=== PATIENT | female | born 1940 | race Caucasian/White ===

== ENCOUNTER 2020-05-03 10:12 | Outpatient (REF) | payer MEDICARE, BC, SELFPAY ==
[2020-05-03 13:44] LABS: Abs Immature Grans 0.01 10^3/uL (0.0-0.06); Absolute Basophil Count 0.05 10^3/uL (0.0-0.2); Absolute Lymphocyte Count 1.66 10^3/uL (1.2-3.4); Absolute Monocyte Count 0.51 10^3/uL (0.1-0.8); Absolute Neutrophil Count 2.97 10^3/uL (1.2-6.7); Basophils % 0.9; Eosinophils % 3.7; HCT 36.9 % (36.0-46.0); HGB 12.5 g/dL (11.2-15.7); Immature Grans % 0.2; Lymphocytes % 30.7; MCH 32.8 pg (27.0-33.0); MCHC 33.9 % (32.0-36.0); MCV 96.9 fL (80-95); MPV 10.8 fL (8.0-11.0); Monocytes % 9.4; Neutrophils % 55.1; Nucleated RBC 0 %; Platelet Count 232 10^3/uL (130-400); RBC 3.81 10^6/uL (3.93-5.22); RDW 11.6 % (11.7-14.6)
[2020-05-03 14:07] LABS: ALT 27 U/L (14-59); AST 20 U/L (15-37); Albumin 3.8 g/dL (3.4-5.0); Alkaline Phosphatase 62 U/L (46-116); Anion Gap 6.5 mmol/L (3-11); BUN 12 mg/dL (7-18); Bilirubin, Total 0.9 mg/dL (0.2-1.0); CO2 26.5 mmol/L (21.0-32.0); CREATININE 0.8 mg/dL (0.55-1.02); Calcium 9.2 mg/dL (8.5-10.1); Calculated LDL 80 mg/dL (<100); Chloride 105 mmol/L (98-107); Cholesterol 157 mg/dL (<200); Glucose 97 mg/dL (74-106); HDL Cholesterol 65 mg/dL (40-60); Potassium 4.3 mmol/L (3.5-5.1); Sodium 138 mmol/L (136-145); TSH (W/Ref FT4) 2.47 uIU/mL (0.36-3.74); Total Protein 6.5 g/dL (6.4-8.2); Triglyceride 61 mg/dL (<150)
== END 2020-05-03 10:13 | disposition home or self-care (01) ==
LOC: NCHCN 10:12
PROVIDERS: PCP Family Medicine; Visit Provider Family Medicine
DX: I10 Essential (primary) hypertension (principal); E78.5 Hyperlipidemia, unspecified
CPT/HCPCS: 80053; 80061; 84443; 85025

== ENCOUNTER 2021-01-02 09:11 | Outpatient (REF) | payer MEDICARE, BC, SELFPAY ==
[2021-01-02 14:15] LABS: HCT 37.9 % (36.0-46.0); HGB 12.7 g/dL (11.2-15.7); MCH 32.6 pg (27.0-33.0); MCHC 33.5 % (32.0-36.0); MCV 97.2 fL (80-95); MPV 10.5 fL (8.0-11.0); Platelet Count 222 10^3/uL (130-400); RDW 11.7 % (11.7-14.6); RDW-SD 41.1 fL; WBC 4.99 10^3/uL (4.4-10.8)
[2021-01-02 15:31] LABS: ALT 26 U/L (14-59); AST 19 U/L (15-37); Albumin 3.8 g/dL (3.4-5.0); Alkaline Phosphatase 57 U/L (46-116); Anion Gap 7.9 mmol/L (3-11); BUN 15 mg/dL (7-18); CO2 28.1 mmol/L (21.0-32.0); Calcium 9.2 mg/dL (8.5-10.1); Calculated LDL 97 mg/dL (<100); Chloride 104 mmol/L (98-107); Cholesterol 183 mg/dL (<200); Estimated GFR 53.35 (mL/min/1.73m2); Glucose 92 mg/dL (74-106); HDL Cholesterol 76 mg/dL (40-60); Potassium 4.5 mmol/L (3.5-5.1); Sodium 140 mmol/L (136-145); Total Protein 6.5 g/dL (6.4-8.2); Triglyceride 54 mg/dL (<150)
[2021-01-02 17:12] LABS: Vitamin D 25 Total 55.4 ng/mL (30-100)
== END 2021-01-02 09:12 | disposition home or self-care (01) ==
LOC: NCHCN 09:11
PROVIDERS: PCP Family Medicine; Visit Provider Family Medicine
DX: I10 Essential (primary) hypertension (principal); E55.9 Vitamin D deficiency, unspecified; E78.5 Hyperlipidemia, unspecified; I47.1 Supraventricular tachycardia
CPT/HCPCS: 80053; 80061; 82306; 85027

== ENCOUNTER → 2021-11-23 04:22 | Outpatient (CLI) | payer MEDICARE, SELFPAY ==
--- NOTE | 2021-11-23 | DI.DEXA_ITS ---
Exam(s) XR DEXA BONE DENSITY W/WO TAYLOR EXAM: XR DEXA BONE DENSITY W/WO TAYLOR CLINICAL HISTORY: MENOPAUSE Z78.0 PREVENTIVE HEALTH CARE Z00.00 TECHNIQUE: Routine DEXA evaluation of the lumbar spine, hip, or forearm. COMPARISON: No exams were available for comparison FINDINGS: Performed on a Hologic unit. Lateral image: No compression fracture evident. Lumbar Spine total T-score: -1.7 Hip total T-score:-1.7 Independent reading at the level of the femoral neck yields at T-score of -1.6. Forearm total T-score: -2.8 IMPRESSION: Bone mineral density measures in the osteopenia-bordering on osteoporosis range. Fracture risk is mod erate-high Note: Any spine fracture indicates 5x risk for subsequent spine fracture and 2x risk for subsequent h ip fracture. World Health Organization criteria for BMD interpretation classify patients: Normal...... T- Score at or above -1.0 Osteopenic... T- Score between -1.0 and -2.5 Osteoporosis... T-Score at or below -2.5
== END ==
PROVIDERS: PCP Family Medicine; Visit Provider Family Medicine
DX: M85.88 Other specified disorders of bone density and structure, other site (principal); Z78.0 Asymptomatic menopausal state
CPT/HCPCS: 77080

== ENCOUNTER 2022-04-15 10:27 | Observation (INO) | payer MEDICARE, SELFPAY ==
[2022-04-15] VITALS (10 sets, daily range): BP systolic 128–192; BP diastolic 65–91; PULSE 50–67; RESP 16–22; TEMP 36.4–36.9; O2SAT 97–100
--- NOTE | 2022-04-15 10:28 | RT.EKG_ITS ---
APPROVED REPORT Exam: Resting ECG Reason for Exam: chest pain Patient Location: E HR:60 bpm ECG Measurements Heart Rate [address] 144 P 73 QRSd 100 QRS 19 QT 418 T 32 QTc 419 Conclusion Sinus rhythm...normal P axis, V-rate 60- 99
[2022-04-15 10:55] LABS: Abs Immature Grans 0.01 10^3/uL (0.0-0.06); Absolute Basophil Count 0.04 10^3/uL (0.0-0.2); Absolute Eosinophil Count 0.05 10^3/uL (0.0-0.7); Absolute Lymphocyte Count 1.64 10^3/uL (1.2-3.4); Absolute Monocyte Count 0.48 10^3/uL (0.1-0.8); Absolute Neutrophil Count 3.63 10^3/uL (1.2-6.7); Basophils % 0.7; Eosinophils % 0.9; HCT 35.8 % (36.0-46.0); HGB 12.8 g/dL (11.2-15.7); Immature Grans % 0.2; MCH 33.6 pg (27.0-33.0); MCHC 35.8 % (32.0-36.0); MCV 94 fL (80-95); MPV 9.9 fL (8.0-11.0); Monocytes % 8.2; Platelet Count 218 10^3/uL (130-400); RBC 3.81 10^6/uL (3.93-5.22); RDW 11.5 % (11.7-14.6); RDW-SD 38.8 fL; WBC 5.85 10^3/uL (4.4-10.8)
[2022-04-15 11:11] LABS: ALT 26 U/L (14-59); AST 24 U/L (15-37); Alkaline Phosphatase 56 U/L (46-116); Anion Gap 6.3 mmol/L (3-11); BUN 8 mg/dL (7-18); Bilirubin, Total 1.4 mg/dL (0.2-1.0); CO2 28.7 mmol/L (21.0-32.0); CREATININE 0.9 mg/dL (0.55-1.02); Calcium 9.3 mg/dL (8.5-10.1); Chloride 101 mmol/L (98-107); Estimated GFR 64.23 (mL/min/1.73m2); Glucose 129 mg/dL (74-106); Magnesium 1.9 mg/dL (1.8-2.4); Potassium 4.2 mmol/L (3.5-5.1); Sodium 136 mmol/L (136-145); Total Protein 6.9 g/dL (6.4-8.2); Troponin I < 50 ng/L (<or=60)
--- NOTE | 2022-04-15 11:11 | DI.CT_ITS ---
Exam(s) CT THORAX ABD/PEL CTA EXAM: CT THORAX ABD/PEL CTA CLINICAL HISTORY: chest pain, central, sharp, hypertensive. TECHNIQUE: Imaging Protocol: Axial computed tomography images with coronal and sagittal reformatted images were created and reviewed CONTRAST MATERIAL: Intravenous: Omnipaque 350 Contrast volume:100 ml Oral: None COMPARISON: No exams were available for comparison FINDINGS: CHEST: AORTA: The diameter of the ascending thoracic aorta is upper normal. Aortic arch and descending thor acic aorta exhibit some calcified plaque but upper normal diameter and there is no evidence of dissec tion. In the abdomen there is no evidence of aortic aneurysm, dissection, nor significant enlargement of th e iliac arteries nor of the common femoral arteries. There is also only mild atherosclerotic involve ment of the aorta, given this patient's age. No significant stenosis in the aorta and aortoiliac seg ments. Also no evidence of significant stenosis at the origin of the great vessels off the aortic ar ch. PULMONARY ARTERIES: No obvious acute pulmonary emboli. LUNGS: No infiltrates nor pleural effusions. No ominous pulmonary nodules.. MEDIASTINUM: There is no hilar nor mediastinal adenopathy. Visualized thyroid unremarkable. CARDIAC: Heart size is normal. There is no pericardial effusion. AORTA: Caliber of the thoracic aorta is within normal limits.There is no evidence of aortic dissectio n. ABDOMEN: There is no ascites. LIVER: There are no focal hepatic lesions evident on this arterial phase study nor dilatation of intr ahepatic ducts. GALLBLADDER/BILIARY: No obvious gallbladder pathology. CBD is not dilated. PANCREAS: No evidence of pancreatic mass nor dilatation of the pancreatic duct. SPLEEN: Spleen is not enlarged. There are no intrasplenic lesions. Splenic and portal veins are couch nt. ADRENALS: There are no significant adrenal masses. KIDNEYS: Bilateral extrarenal pelves, not associated with caliectasis. No radiopaque calculi seen in the ureters. Ureter is below the UPJ levels are not dilated. No radiopaque calculi nor hydronephro sis. No solid renal masses.. ABDOMINAL AORTA: The abdominal aorta is not enlarged. LYMPH NODES: There is no retroperitoneal nor para-aortic adenopathy. No obvious mesenteric masses. ABDOMINAL WALL: No evidence of significant anterior abdominal wall hernia. GI: There is no evidence of bowel obstruction, free air, nor abscess. PELVIS: LYMPH NODES: There is no intrapelvic nor inguinal adenopathy. GI: No evidence of appendicitis.No evidence of sigmoid diverticulitis. URINARY BLADDER: No calculi nor masses evident REPRODUCTIVE: Uterus and adnexal regions echo. No free fluid. OSSEOUS: No significant osseous lesions. No fractures. Grade 1 did degenerative anterolisthesis L4 upon L5. No disc space narrowing at this level. Mild disc space narrowing noted at L5-S1 level. IMPRESSION: 1. No significant findings in the thoracic and abdominal aorta nor in the aortoiliac segments. No an eurysmal dilatation. No significant stenosis. No dissection. No pericardial effusion. 2. No significant acute findings in the chest, abdomen, and pelvis. 3. Incidentally noted is degenerative anterolisthesis of L4 upon L5 due to facet arthropathy. RADIATION DOSE DELIVERED: 662.58mGy.cm Total DLP DATA REPOSITORY: All CT scans at this facility are submitted to the National Radiology Data Registry (NRDR) Dose Index Registry (DIR) with the [employer] (ACR). RADIATION OPTIMIZATION: All CT scans at this facility use at least one of these dose optimization te chniques: automated exposure control; mA and/or kV adjustment per patient size (includes targeted exa ms where dose is matched to clinical indication); or iterative reconstruction.
[2022-04-15] MEDS: LORazepam 2 MG/ML VIAL 0.5 MG IVP (11:31)
[2022-04-15] MEDS: Omnipaque 350 MG/ML 100 ML BTL IJ (11:37)
[2022-04-15] MEDS: Normal Saline - Diluent 50 ML VIAL IV (11:48)
--- NOTE | 2022-04-15 12:13 | DI.VRAD_ITS ---
PROCEDURE INFORMATION: Exam: CTA Chest With Contrast CTA Abdomen and Pelvis With Contrast Exam date and time: 04/15/2022 11:39 AM Age: 81 years old Clinical indication: Other: Chest pain, central, sharp, hypertensive; Prior surgery; Surgery date: 6+ months; Surgery type: Appendectomy TECHNIQUE: Imaging protocol: Computed tomographic angiography of the chest with contrast. Computed tomographic angiography of the abdomen and pelvis with contrast. 3D rendering (Not supervised by radiologist): MIP and/or 3D reconstructed images were created by the technologist. Radiation optimization: All CT scans at this facility use at least one of these dose optimization techniques: automated exposure control; mA and/or kV adjustment per patient size (includes targeted exams where dose is matched to clinical indication); or iterative reconstruction. Contrast material: OMNIPAQUE 350; Contrast volume: 90 ml; Contrast route: INTRAVENOUS (IV); COMPARISON: No relevant prior studies available. FINDINGS: VASCULATURE: Pulmonary arteries: Normal. No pulmonary emboli. Aorta: No aortic aneurysm. No aortic dissection. Moderate atherosclerosis. Celiac trunk and mesenteric arteries: No occlusion or significant stenosis. Renal arteries: No occlusion or significant stenosis. Right iliac arteries: No occlusion or significant stenosis. Left iliac arteries: No occlusion or significant stenosis. CHEST: Lungs: Unremarkable. No consolidation. No masses. Pleural spaces: Unremarkable. No pneumothorax. No pleural effusion. Heart: Unremarkable. No cardiomegaly. No pericardial effusion. ABDOMEN AND PELVIS: Liver: No mass. Gallbladder and bile ducts: Unremarkable. No calcified stones. No ductal dilation. Pancreas: Unremarkable. No mass. No ductal dilation. Spleen: Unremarkable. No splenomegaly. Adrenal glands: Unremarkable. No mass. Kidneys and ureters: Kidneys exhibit mildly prominent extrarenal pelvis bilaterally. No calculus or obstruction. Stomach and bowel: Unremarkable. No obstruction. No mucosal thickening. Appendix: History of previous appendectomy. Intraperitoneal space: Unremarkable. No free air. No significant fluid collection. Urinary bladder: Unremarkable. No mass. Reproductive: Unremarkable as visualized. Lymph nodes: Unremarkable. No enlarged lymph nodes. Bones/joints: Unremarkable. No acute fracture. Soft tissues: Unremarkable. IMPRESSION: Unremarkable CTA chest, abdomen, and pelvis. Dictated and Authenticated by: Gerard Roy MD. Ordering:MIGDALIA Brock MD
--- NOTE | 2022-04-15 12:26 | NUR.NOTE ---
Nursing Note: Signed request form faxed to and confirmation obtained. Requested Admit discharge summary and/or ED note; EKG; CT scan results; any cardiac testing results. [place], [place] P [phone] F [phone]
--- NOTE | 2022-04-15 12:28 | W.ED.GENAD ---
Discharge Plan Disposition Patient Disposition: Admit to [facility] Condition: Stable Discharge Details Chief Complaint: Chest Pain Clinical Impression: Chest pain Primary Care Provider: Yoon Hernandez ED Provider: Vinod Adrian Home Meds and New Rx's Prescriptions: No Action nitroglycerin [Nitrostat] 0.3 mg tablet, sublingual 0.3 mg sublingual Q5M PRN Rx Instructions: do not exceed 3 doses per episode ramipril 10 mg capsule 10 mg PO BID alprazolam 0.5 mg tablet 0.5 mg PO BID aspirin 81 mg tablet,chewable 81 mg PO DAILY Centrum Silver 0.4-300-250 mg-mcg-mcg tablet 1 tab PO DAILY simvastatin 10 mg tablet 10 mg PO DAILY fluticasone propionate [Flonase Allergy Relief] 50 mcg/actuation spray,suspension 1 spray intranasal DAILY PRN Rx Instructions: administer into each nostril Caltrate 600 plus D 600 mg (1,500 mg)-800 unit tablet,chewable 1 tab PO DAILY psyllium husk [Metamucil] 0.52 gram capsule 0.52 g PO .Q OTHER DAY PRN atenolol 25 mg tablet 25 mg PO BID Medical Decision Making 1230 --81-year-old female with multiple medical problems including history of hyperlipidemia, hypertension, SVT, here with intermittent chest pressure over the past few weeks and sharp retrosternal chest discomfort today that improved with sublingual nitroglycerin. Patient is hypertensive. She does have history of anxiety and does appear anxious today. Concern for potential acute life-threatening aortic dissection. Plan to obtain CTA of the thorax and continue to observe abdomen pelvis for runoff. I considered intermittent arrhythmia. Patient currently in normal sinus rhythm on cardiac cath lab radiology technologist and EKG. Consider ACS. Initial EKG was reviewed and interpreted by me: Nondiagnostic, please see report. Initial troponin negative. Plan for delta troponin and continue trending. I do suspect anxiety is contributing to her symptoms. I will give Ativan 0.5 mg IV.\ -- Labs reviewed initial troponin negative. Delta troponin negative. CTA of the chest was interpreted by radiology: Unremarkable CTA chest abdomen and pelvis. Plan for hospitalization for continued cardiac monitoring and observation with trending of troponin. I called and spoke with the hospitalist on-call, Dr. Ruggireo, discussed ED presentation and course, he will admit the patient. Care transition at time of admission. Lab Data Lab results reviewed: Yes I reviewed the patient's lab results. Labs: Laboratory Tests Range/Units 04/15/22 04/15/22 04/15/22 10:38 10:38 12:52 WBC (4.4-10.8) 10^3/uL 5.85 RBC (3.93-5.22) 10^6/uL 3.81 L Hgb (11.2-15.7) g/dL 12.8 Hct (36.0-46.0) % 35.8 L MCV (80-95) fL 94 MCH (27.0-33.0) pg 33.6 H MCHC (32.0-36.0) % 35.8 RDW (11.7-14.6) % 11.5 L Plt Count (130-400) 10^3/uL 218 MPV (8.0-11.0) fL 9.9 Immature Gran % 0.2 Neutrophils % 62.0 Lymphocytes % 28.0 Monocytes % 8.2 Eosinophils % 0.9 Basophils % 0.7 Nucleated RBC % (0.0-0.3) % 0.0 Absolute Neutrophils (1.2-6.7) 10^3/uL 3.63 Absolute Lymphocytes (1.2-3.4) 10^3/uL 1.64 Absolute Monocytes (0.1-0.8) 10^3/uL 0.48 Absolute Eosinophils (0.0-0.7) 10^3/uL 0.05 Absolute Basophils (0.0-0.2) 10^3/uL 0.04 Sodium (136-145) mmol/L 136 Potassium (3.5-5.1) mmol/L 4.2 Chloride (98-107) mmol/L 101 Carbon Dioxide (21.0-32.0) mmol/L 28.7 Anion Gap (3-11) mmol/L 6.3 BUN (7-18) mg/dL 8 Creatinine (0.55-1.02) mg/dL 0.9 Est GFR (CKD-EPI 2020) (mL/min/1.73m2) 64.23 Glucose (74-106) mg/dL 129 H Calcium (8.5-10.1) mg/dL 9.3 Magnesium (1.8-2.4) mg/dL 1.9 Total Bilirubin (0.2-1.0) mg/dL 1.4 H AST (15-37) U/L 24 ALT (14-59) U/L 26 Alkaline Phosphatase (46-116) U/L 56 Troponin I (<or=60) ng/L < 50 < 50 Total Protein (6.4-8.2) g/dL 6.9 Albumin (3.4-5.0) g/dL 4.0 HPI General Mode of arrival: ambulatory. Date/Time Provider Initiated Documentation: 04/15/22 10:34. Limitations to Documentation: no limitations. Information obtained by: patient. HPI Narrative: 81-year-old female here with chief complaint of chest pain. Patient has intermittent chest pain for the past few weeks. Today she woke up early this morning feeling flushed and developed sharp retrosternal chest pain around 4:30 AM. Pain persisted and she took a nitroglycerin around 915 which resolved her pain. Pain was severe. She continues to have some mild chest pressure similar to the intermittent episodes she has had. She does have associated anxiety and notes history of anxiety disorder. She denies associated shortness of breath. No leg swelling or calf pain. No abdominal pain. Patient notes she had similar episode about 6 months ago and was seen at [facility] in [facility]. She had negative diagnostic work-up at that time. Related Data Home Medications Medication Instructions Recorded Confirmed alprazolam 0.5 mg tablet 0.5 mg PO BID 03/06/21 04/15/22 aspirin 81 mg chewable tablet 81 mg PO DAILY 03/06/21 04/15/22 atenolol 25 mg tablet 25 mg PO BID 03/06/21 04/15/22 calcium carbonate 600 mg-vitamin 1 tab PO DAILY 03/06/21 04/15/22 D3 20 mcg (800 unit) chewable tablet (Caltrate 600 plus D) fluticasone propionate 50 1 spray intranasal DAILY PRN 03/06/21 04/15/22 mcg/actuation nasal spray,suspension (Flonase Allergy Relief) [id number] acid 0.4 1 tab PO DAILY 03/06/21 04/15/22 mg-lycopene 300 mcg-lutein 250 mcg tablet (Centrum Silver) psyllium husk 0.52 gram capsule 0.52 g PO .Q OTHER DAY PRN 03/06/21 04/15/22 (Metamucil) ramipril 10 mg capsule 10 mg PO BID 03/06/21 04/15/22 simvastatin 10 mg tablet 10 mg PO DAILY 03/06/21 04/15/22 nitroglycerin 0.3 mg sublingual 0.3 mg sublingual Q5M PRN 10/10/21 04/15/22 tablet (Nitrostat) Allergies Allergy/AdvReac Type Severity Reaction Status Date / Time mold Allergy Verified 10/10/21 10:48 soy Allergy Verified 10/10/21 10:48 Sulfa (Sulfonamide Allergy Verified 10/10/21 10:48 Antibiotics) SSRI'S Allergy Uncoded 10/10/21 10:48 General Stated Complaint: Chest Pain ZOFIA: 2 Review of Systems All systems reviewed & are unremarkable except as noted in HPI and below Constitutional Constitutional: Denies fever(s) Cardiovascular Cardiovascular: Reports as per HPI Respiratory Respiratory: Reports as per HPI PFSH All Active Problems (Updated 04/15/22 @ 14:50 by Vinod Adrian MD) Chest pain (Acute) History of excessive cerumen (Acute) Conductive hearing loss, external ear (Acute) Impacted cerumen, bilateral (Acute) Sensorineural hearing loss of both ears (Acute) Medical History Age-related osteoporosis without current pathological fracture Allergic dermatitis Anxiety Gastroesophageal reflux disease Generalized anxiety disorder Hemorrhoids Hyperlipidemia Hypertension IBS (irritable bowel syndrome) OCD (obsessive compulsive disorder) Preventative health care Supraventricular tachycardia Vitamin D deficiency Surgical History History of appendectomy History of excision of lesion Hx of fusion of cervical spine Family History Mother Colon cancer Social History Smoking/Tobacco Use Status: Former Tobacco Use tobacco type: cigarettes Quit Date: 03/25/1962 Smoking risk assessment performed?: Yes Alcohol Intake: current Alcohol Intake frequency: holidays/special occasions only Alcohol type: wine Drug use: Never Substance use type: does not use Do you feel safe at home: Yes Do you feel safe in your relationship?: Yes Exam Const General: cooperative HENMT Mouth: moist mucous membranes Eyes Conjunctivae: normal conjunctivae EOM: EOM intact bilaterally Neck Neck: trachea midline and supple Resp Auscultation: clear to auscultation bilaterally, no rales, no rhonchi and no wheezes Cardio Jugular venous pressure: no JVD Rate: regular rate and not tachycardic Rhythm: regular rhythm Heart Sounds: no murmurs GI Palpation: soft, not firm, no guarding, no masses, not rigid and nontender Skin General skin exam: no rashes or lesions noted Neuro General: patient alert, patient awake, patient oriented x3 and tone normal Extrem General: no edema Psych Appearance: grossly normal Mental Status: mental status grossly normal Speech and Movement: speech and movement normal Affect: anxious affect Course Vital Signs Vital signs: Vital Signs Temperature 36.5 C 04/15/22 10:30 Pulse 67 04/15/22 10:30 Respiratory Rate 20 04/15/22 10:30 Blood Pressure 179/65 H 04/15/22 10:30 Pulse Oximetry 98 04/15/22 10:30 Temperature 36.5 C 04/15/22 10:30 Temperature Source Temporal Artery Scan 04/15/22 10:30 Pulse 50 L 04/15/22 12:02 Respiratory Rate 18 04/15/22 12:02 Respiratory Effort Non-Labored 04/15/22 11:47 Respiratory Depth Normal 04/15/22 11:47 Respiratory Pattern Normal 04/15/22 11:47 Blood Pressure 165/84 H 04/15/22 12:02 Pulse Oximetry 99 04/15/22 12:02 Oxygen Delivery Method Room Air 04/15/22 12:02 Oxygen Flow Rate 0 04/15/22 12:02 Pain Level 0 04/15/22 11:47 Lab/Test Results Lab/Test Results: Laboratory Tests Range/Units 04/15/22 04/15/22 10:38 10:38 WBC (4.4-10.8) 10^3/uL 5.85 RBC (3.93-5.22) 10^6/uL 3.81 L Hgb (11.2-15.7) g/dL 12.8 Hct (36.0-46.0) % 35.8 L MCV (80-95) fL 94 MCH (27.0-33.0) pg 33.6 H MCHC (32.0-36.0) % 35.8 RDW (11.7-14.6) % 11.5 L Plt Count (130-400) 10^3/uL 218 MPV (8.0-11.0) fL 9.9 Immature Gran % 0.2 Neutrophils % 62.0 Lymphocytes % 28.0 Monocytes % 8.2 Eosinophils % 0.9 Basophils % 0.7 Nucleated RBC % (0.0-0.3) % 0.0 Absolute Neutrophils (1.2-6.7) 10^3/uL 3.63 Absolute Lymphocytes (1.2-3.4) 10^3/uL 1.64 Absolute Monocytes (0.1-0.8) 10^3/uL 0.48 Absolute Eosinophils (0.0-0.7) 10^3/uL 0.05 Absolute Basophils (0.0-0.2) 10^3/uL 0.04 Sodium (136-145) mmol/L 136 Potassium (3.5-5.1) mmol/L 4.2 Chloride (98-107) mmol/L 101 Carbon Dioxide (21.0-32.0) mmol/L 28.7 Anion Gap (3-11) mmol/L 6.3 BUN (7-18) mg/dL 8 Creatinine (0.55-1.02) mg/dL 0.9 Est GFR (CKD-EPI 2020) (mL/min/1.73m2) 64.23 Glucose (74-106) mg/dL 129 H Calcium (8.5-10.1) mg/dL 9.3 Magnesium (1.8-2.4) mg/dL 1.9 Total Bilirubin (0.2-1.0) mg/dL 1.4 H AST (15-37) U/L 24 ALT (14-59) U/L 26 Alkaline Phosphatase (46-116) U/L 56 Troponin I (<or=60) ng/L < 50 Total Protein (6.4-8.2) g/dL 6.9 Albumin (3.4-5.0) g/dL 4.0
[2022-04-15 13:24] LABS: Troponin I < 50 ng/L (<or=60)
[2022-04-15 14:58] LABS: Source Nasal/Nares
--- NOTE | 2022-04-15 15:00 | W.PM.HP.N ---
Date of service: 04/15/22 Time of Service: 15:01 Assessment and Plan Assessment and plan (1) Chest pain: Status: Acute Assessment and plan: R/O ACS; trend troponin. Possibly GI in nature. H/O GERD but not on acid suppressant. If pain recurs will initiate famotadine or PPI. On aspirin, BB, statin. (2) Generalized anxiety disorder: Assessment and plan: Given 0.5mg po ativan in the ED. Cont home alprazolam 0.5 BID. Also with dx of OCD. (3) Hyperlipidemia: Assessment and plan: Cont simvastatin. (4) Hypertension: Assessment and plan: Elevated in the ED. Recently prescribed amlodipine but she has been hesitant to start taking it because she was alone at home and some of the potential side effects worried her. She is willing to initiate amlodipine while in the hospital; 2.5mg QHS. She is taking atenolol and ramipril. HR in the 50's and occasionally 40's per her daily records. Does not have symptoms of orthostasis, dizziness, fatigue. (5) Supraventricular tachycardia: Assessment and plan: Previous history of SVT. Not seen on monitoring in ED. Telemetry. (6) Elevated bilirubin: Status: Acute Assessment and plan: Previous bilirubin levels in [facility] chart were normal; none were drawn recently. Monitor. History of Present Illness History of Present Illness Chief Complaint: Chest pain Narrative: This is an 81 yo female with a PMH of HTN, HLDS, SVT, IBS, GERD, OCD, anxiety. She presented to the ED with c/o several weeks of intermittent chest pressure, then at appx 4:30 AM on day of admission, she woke with a sharp retrosternal chest pain along with feeling flushed. She took a nitroglycerin at appx 9:15 and the sharp pain resolved. She described the pain as severe. No palpitations, shortness of breath, fever/chills, N/V/abd pain. Of note, she endorsed a similar episode 6 months ago and was seen at [facility] in [place], [place]. The w/u was negative. In the ED her troponin was negative x 2. No concerning EKG findings. CT chest/abd/pelvis was negative for concerning findings. WBC and Hgb normal. Lytes normal. Total bilirubin was mildly elevated at 1.4. LFTs normal. Initial BP 179/65. RA saturation 98%. Pulse 67. Review of Systems All systems reviewed & are unremarkable except as noted in HPI and below PFSH All Active Problems (Updated 04/15/22 @ 15:16 by Abisai Ruggiero MD) Elevated bilirubin (Acute) Chest pain (Acute) History of excessive cerumen (Acute) Conductive hearing loss, external ear (Acute) Impacted cerumen, bilateral (Acute) Sensorineural hearing loss of both ears (Acute) Medical History Age-related osteoporosis without current pathological fracture Allergic dermatitis Anxiety Gastroesophageal reflux disease Generalized anxiety disorder Hemorrhoids Hyperlipidemia Hypertension IBS (irritable bowel syndrome) OCD (obsessive compulsive disorder) Preventative health care Supraventricular tachycardia Vitamin D deficiency Surgical History History of appendectomy History of excision of lesion Hx of fusion of cervical spine Family History Mother Colon cancer Social History Smoking/Tobacco Use Status: Former Tobacco Use tobacco type: cigarettes Quit Date: 03/25/1962 Smoking risk assessment performed?: Yes Alcohol Intake: current Alcohol Intake frequency: holidays/special occasions only Alcohol type: wine Drug use: Never Substance use type: does not use Do you feel safe at home: Yes Do you feel safe in your relationship?: Yes Meds Allergies and Home Medications Allergies Allergy/AdvReac Type Severity Reaction Status Date / Time mold Allergy Verified 10/10/21 10:48 soy Allergy Verified 10/10/21 10:48 Sulfa (Sulfonamide Allergy Verified 10/10/21 10:48 Antibiotics) SSRI'S Allergy Uncoded 10/10/21 10:48 Home Medications Medication Instructions Recorded Confirmed Type alprazolam 0.5 mg tablet 0.5 mg PO BID 03/06/21 04/15/22 History aspirin 81 mg chewable tablet 81 mg PO DAILY 03/06/21 04/15/22 History atenolol 25 mg tablet 25 mg PO BID 03/06/21 04/15/22 History calcium carbonate 600 mg-vitamin 1 tab PO DAILY 03/06/21 04/15/22 History D3 20 mcg (800 unit) chewable tablet (Caltrate 600 plus D) fluticasone propionate 50 1 spray intranasal DAILY PRN 03/06/21 04/15/22 History mcg/actuation nasal spray,suspension (Flonase Allergy Relief) vasttdbv-pvw-vreqv acid 0.4 1 tab PO DAILY 03/06/21 04/15/22 History mg-lycopene 300 mcg-lutein 250 mcg tablet (Centrum Silver) psyllium husk 0.52 gram capsule 0.52 g PO .Q OTHER DAY PRN 03/06/21 04/15/22 History (Metamucil) ramipril 10 mg capsule 10 mg PO BID 03/06/21 04/15/22 History simvastatin 10 mg tablet 10 mg PO DAILY 03/06/21 04/15/22 History nitroglycerin 0.3 mg sublingual 0.3 mg sublingual Q5M PRN 10/10/21 04/15/22 History tablet (Nitrostat) amlodipine 2.5 mg tablet 2.5 mg PO DAILY 04/15/22 04/15/22 History Exam Narrative Exam Narrative: Standing in her room, looking for a place to plug in her phone and hearing aid chargers. Pleasant. Const General: cooperative and no acute distress Nutritional Appearance: thin Orientation: alert and oriented x3 Neck Neck: normal visual inspection and full ROM Resp Effort & Inspection: normal respiratory effort Auscultation: clear to auscultation bilaterally Cardio Rate: regular rate Rhythm: regular rhythm Heart Sounds: S1 normal and S2 normal GI Inspection: non-distended Palpation: nontender Skin General skin exam: no rashes or lesions noted Neuro General: no focal motor deficits Cranial Nerves: facial strength normal Speech: speech normal Gait: normal gait Extrem General: no pedal edema and no calf tenderness Psych Appearance: grossly normal Speech and Movement: speech and movement normal Affect: anxious affect Results Labs Result diagrams: 04/15/22 10:38 04/15/22 10:38 Labs: Laboratory Results - last 24 hr 04/15/22 04/15/22 04/15/22 10:38 10:38 12:52 WBC 5.85 RBC 3.81 L Hgb 12.8 Hct 35.8 L MCV 94 MCH 33.6 H MCHC 35.8 RDW 11.5 L Plt Count 218 MPV 9.9 Immature Gran % 0.2 Neutrophils % 62.0 Lymphocytes % 28.0 Monocytes % 8.2 Eosinophils % 0.9 Basophils % 0.7 Nucleated RBC % 0.0 Absolute Neutrophils 3.63 Absolute Lymphocytes 1.64 Absolute Monocytes 0.48 Absolute Eosinophils 0.05 Absolute Basophils 0.04 Sodium 136 Potassium 4.2 Chloride 101 Carbon Dioxide 28.7 Anion Gap 6.3 BUN 8 Creatinine 0.9 Est GFR (CKD-EPI 2020) 64.23 Glucose 129 H Calcium 9.3 Magnesium 1.9 Total Bilirubin 1.4 H AST 24 ALT 26 Alkaline Phosphatase 56 Troponin I < 50 < 50 Total Protein 6.9 Albumin 4.0 COVID-19 Source 04/15/22 14:45 WBC RBC Hgb Hct MCV MCH MCHC RDW Plt Count MPV Immature Gran % Neutrophils % Lymphocytes % Monocytes % Eosinophils % Basophils % Nucleated RBC % Absolute Neutrophils Absolute Lymphocytes Absolute Monocytes Absolute Eosinophils Absolute Basophils Sodium Potassium Chloride Carbon Dioxide Anion Gap BUN Creatinine Est GFR (CKD-EPI 2020) Glucose Calcium Magnesium Total Bilirubin AST ALT Alkaline Phosphatase Troponin I Total Protein Albumin COVID-19 Source Nasal/Nares Last Vital Signs Temp 36.5 C 04/15/22 10:30 Pulse 58 L 04/15/22 14:58 Resp 20 04/15/22 14:58 BP 154/71 H 04/15/22 14:58 Pulse Ox 97 04/15/22 14:58 Time Spent Time spent with Patient: <40 minutes Time was spent: preparing to see the patient(eg.review tests), ordering medications,tests, procedures, referring, communicating with other health adult day care worker and indepentently interpreting results
[2022-04-15 15:28] LABS: COVID-19 PCR Negative (Negative)
[2022-04-15 17:24] LABS: Troponin I < 50 ng/L (<or=60)
[2022-04-15] MEDS: ALPRAZolam 0.5 MG TAB PO (20:39)
[2022-04-15] MEDS: Atenolol 50 MG TAB 25 MG PO (20:39)
[2022-04-15] MEDS: Simvastatin 20 MG TAB 10 MG PO (20:40)
[2022-04-15] MEDS: Ramipril 5 MG CAP 10 MG PO (22:44)
[2022-04-15] MEDS: amLODIPine 2.5 MG TAB PO (22:44)
[2022-04-16] VITALS (9 sets, daily range): BP systolic 139–210; BP diastolic 72–100; PULSE 51–72; RESP 16–19; TEMP 35.6–36.7; O2SAT 98–100
[2022-04-16 06:46] LABS: ALT 18 U/L (14-59); AST 20 U/L (15-37); Albumin 3.3 g/dL (3.4-5.0); Alkaline Phosphatase 44 U/L (46-116); Anion Gap 6.3 mmol/L (3-11); BUN 11 mg/dL (7-18); Bilirubin, Total 1.1 mg/dL (0.2-1.0); CO2 27.7 mmol/L (21.0-32.0); CREATININE 0.8 mg/dL (0.55-1.02); Calcium 9.1 mg/dL (8.5-10.1); Chloride 104 mmol/L (98-107); Estimated GFR 73.98 (mL/min/1.73m2); Glucose 91 mg/dL (74-106); Sodium 138 mmol/L (136-145); Total Protein 5.6 g/dL (6.4-8.2)
--- NOTE | 2022-04-16 07:25 | NUR.NOTE ---
Nursing Note: Accessed chart to determine orders for EKG and to determine whether or not one needs to be cancelled.
[2022-04-16] MEDS: Multivitamin w/Minerals TAB 1 TAB PO (08:14)
[2022-04-16] MEDS: Ramipril 5 MG CAP 10 MG PO ×2 (08:14→19:48)
[2022-04-16] MEDS: ALPRAZolam 0.5 MG TAB PO ×2 (08:14→19:48)
[2022-04-16] MEDS: Aspirin 81 MG CHEW PO (08:14)
[2022-04-16] MEDS: Atenolol 50 MG TAB 25 MG PO ×2 (08:29→19:48)
--- NOTE | 2022-04-16 09:29 | INITIAL_ITS ---
- If Service Date Differs Date of service: 04/16/22 Time of Service: 09:30 Care Management Initial Assess REASON FOR HOSPITALIZATION:: chest pain PAST MEDICAL HISTORY/PAST SURGICAL HISTORY:: All Active Problems (Updated 04/15/22 @ 15:16 by Abisai Ruggiero MD). Elevated bilirubin (Acute). Chest pain (Acute). History of excessive cerumen (Acute). Conductive hearing loss, external ear (Acute). Impacted cerumen, bilateral (Acute). Sensorineural hearing loss of both ears (Acute). Medical History . Age-related osteoporosis without current pathological fracture. Allergic dermatitis. Anxiety. Gastroesophageal reflux disease. Generalized anxiety disorder. Hemorrhoids. Hyperlipidemia. Hypertension. IBS (irritable bowel syndrome). OCD (obsessive compulsive disorder). Preventative health care. Supraventricular tachycardia. Vitamin D deficiency. Surgical History . History of appendectomy. History of excision of lesion. Hx of fusion of cervical spine PREVIOUS FUNCTIONAL STATUS/SOCIAL/FAMILY SUPPORTS:: Soledad lives alone in a single family home in [place]. She has 3 children, 7 grandchildren and 5 great grandchildren. She shared that her family is scattered all over the country but that she has one daughter and 3 grandchildren closeby. Soledad is independent at baseline and does not receive any community services. She is very active and enjoys walking, hiking and kayaking. [place] [address]. 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 CURRENT FUNCTIONAL STATUS:: Soledad was sitting up in a chair when CM met with her. She was open to conversation and pleasant in interaction. Soledad informed CM that she is feeling much better than when she arrived and anticipates being discharged home later today. She did ask CM about telehealth monitoring. CM reached out to [facility] to determine the requirements and eligibility. This service is provided by home health and patients must meet home health requirementas such as being house bound. Soledad does not meet that criteria.CM informed her of that fact but also reached out to her PCP office to communicate Soledad's desire to have closer monitoring at home. ADVANCE DIRECTIVES:: none on file Has patient been provided with info about the portal/API?: Yes Did the patient sign up for the portal?: No CODE STATUS:: DNR/DNI INSURANCE COVERAGE / FINANCIAL ISSUES:: [facility] Medicare Advantage CURRENT HOME/COMMUNITY SERVICES/EQUIPMENT:: none PRIMARY CARE PHYSICIAN:: Yoon Hernandez POTENTIAL DISCHARGE NEEDS:: follow up with Cardiology and PCP PATIENT/FAMILY EDUCATION NEEDS:: review of disharge instructions, medications, activity, limitations, follow up plan, Ask Me Three TRANSPORTATION:: via private vehicle with family PLAN:: Soledad will likely be dsicharged home with no new services. She will follow up with her community providers and plan of care and transport with family. CM will follow and assess for dsicharge needs.
--- NOTE | 2022-04-16 14:30 | DI.US_ITS ---
APPROVED REPORT EXAM: Comprehensive 2D, Doppler, and color-flow Echocardiogram Patient Location: In-Patient Room/Bed: 231 Ocular Care Aide: Hortencia Youssef RDCS (AE) Indications: Chest pain, HTN Other Information Study Quality: Adequate Conclusion Normal left ventricular wall thickness and chamber size. Estimated ejection fraction is 55 to 60%. Wall motion is normal Normal right ventricular size and systolic function Both atria are normal in size Trileaflet aortic valve with trace regurgitation Mild mitral annular calcification. Mild to moderate mitral regurgitation Normal tricuspid valve with trace to mild regurgitation. Estimated right ventricular systolic pressu re is 33 mmHg Borderline dilated ascending aorta Wall motion Left Ventricle The left ventricle is normal size. The left ventricular systolic function is normal. The left ventric ular ejection fraction is within the normal range. There is normal left ventricular wall thickness. T here is normal LV segmental wall motion. There is no ventricular septal defect visualized. LVEF is 58 %. Right Ventricle Right ventricle is grossly normal in size. The right ventricular systolic function is normal. The RVS P is 33.4 mmHg. Atria The left atrium size is normal. The right atrium size is normal. The interatrial septum is intact wit h no evidence for an atrial septal defect. Aortic Valve The aortic valve is normal in structure. Aortic valve is trileaflet. There is no aortic valvular sten osis. Trace aortic regurgitation. Mitral Valve There is mitral annular calcification. No evidence of mitral valve stenosis. Mild to moderate mitral regurgitation. Tricuspid Valve The tricuspid valve is normal in structure. There is no tricuspid valve stenosis. Trace to mild tric uspid regurgitation. Pulmonic Valve The pulmonary valve is normal in structure. There is no pulmonic valvular stenosis. Trace pulmonic re gurgitation. Great Vessels The aortic root is normal in size. The ascending aorta is mildly dilated. Aortic arch is normal in ca liber. IVC is normal in size and collapses >50% with inspiration. Pericardium There is no pericardial effusion. 2D Dimensions IVSD d PLAX 0.77 cm F: 0.6-1.0 LV Vol A2C d MOD 85.8 mL LVPW d PLAX 0.76 cm F: 0.6 - 1.0 LV Vol A4C d MOD 79.8 mL LVID d PLAX 4.60 cm F: 3.8 - 5.2 LA vol/ BSA A2C s A-L 34.6 mL/m2 LVDs 3.25 cm F: 2.2 - 3.5 LA vol/ BSA A4C s A-L 41.5 mL/m2 Ao Root d 3.02 cm F: 2.7 - 3.3 LA Vol/ BSA Biplane s A-L 39.2 mL/m2 RA Area A4C 13.12 cm2 LA Area A4C s MOD 20.78 cm2 RA Vol/ BSA A4C s A-L 22.8 mL/m2 LA Area A2C s MOD 19.65 cm2 Ao Asc Diam d 3.38 cm F: 2.3 - 3.1 LV EF A4C MOD 57.5 % LV EF Teichholz 55.2 % LV EF A2C MOD 58.6 % LVEF (Wong's) 56.62 % F: 54 - 74 LV EF Biplane MOD 56.6 % LV Volume 68.07 mL F: 46 - 106 SV 47.66 mL LV Volume Index 42.01 mL/m2 F: 29 - 61 SV Index 29.42 mL/m2 LV Vol Biplane MOD 84.2 mL FS 28.60 % M-Mode TAPSE 2.38 cm (M/F) >1.7 LV Diastology MV E' medial 0.078 (>0.07 m/s) E/A Ratio 1.3 LV E/e MED 11.60 (<14) MV E Vmax 0.91 (0.4-1.3 m/s) MV E' lateral 0.090 (>0.1 m/s) MV A Vmax 0.70 (0.4-1.3 m/s) LV E/e LAT 10.15 (<14) MV E/A Ratio 1.27 MV E/E' medial 11.64 MV E/E' lateral 10.16 Aortic Valve LVOT Area 3.07 cm2 AoV Area Vmax 2.65 cm2 LVOT Vmax 1.22 m/s AoV Area/ BSA (Vmax) 1.64 cm2/m2 LVOT Mean Kurt. 0.68 m/s MARKUS Mean Kurt. 2.15 cm2 LVOT Peak Grad 6.0 mmHg MARKUS Mean Kurt. Index 1.33 cm2/m2 LVOT Mean Grad 2.4 mmHg AR DT 3814 msec LVOT VTI 0.282 m AR PHT 1106 msec LVOT Diam s 1.95 cm AoV Vmax 1.41 m/s Velocity Ratio 0.87 AoV Mean Kurt. 0.98 m/s AoV Peak Grad 8.0 mmHg LVOT SV 86.57 mL AoV Mean Grad 4.3 mmHg AoV VTI 0.337 m AoV Area VTI 2.57 cm2 AoV Area/ BSA (VTI) 1.59 cm/m2 Mitral Valve MV DT 166 (160-240 msec) MV PHT 48 msec MV Area PHT 4.58 cm2 Pulmonary Valve PV Vmax 0.84 (0.5-1.5 m/s) RVOT Peak Gr. 2.39 mmHg PV Peak Grad 2.9 mmHg RVOT Mean Gr. 1.30 mmHg PV Mean Grad 1.7 mmHg RVOT VTI 0.204 m PV VTI 0.212 m RVOT Vmax 0.77 m/s Tricuspid Valve TR Peak Grad 30.3 mmHg TR Vmax 2.76 m/s RA Pressure 3.00 mmHg RVSP (TR) 33.4 mmHg
--- NOTE | 2022-04-16 15:05 | PHA.REVIEW2 ---
Pharmacy Admission Review - Admission Clinical Review (Last Reviewed 04/15/22 @ 15:15 by Abisai Ruggiero MD) Elevated bilirubin (Acute) Chest pain (Acute) mold Allergy (Verified 10/10/21 10:48) soy Allergy (Verified 10/10/21 10:48) Sulfa (Sulfonamide Antibiotics) Allergy (Verified 10/10/21 10:48) SSRI'S Allergy (Uncoded 10/10/21 10:48) Resuscitation Status DNR/DNI Weight 58 kg - Renal Dosing Renal Dosing: BUN 11 mg/dL (7-18) 04/16/22 05:40 Creatinine 0.8 mg/dL (0.55-1.02) 04/16/22 05:40 Medications needing adjustments: Reviewed (crcl ~ 39, meds ok) - Anticoagulation Anticoagulation: Hgb 12.8 g/dL (11.2-15.7) 04/15/22 10:38 Hct 35.8 % (36.0-46.0) L 04/15/22 10:38 Plt Count 218 10^3/uL (130-400) 04/15/22 10:38 Creatinine 0.8 mg/dL (0.55-1.02) 04/16/22 05:40 DVT Prophylaxis: N/A (SCDs) Therapeutic Anticoagulation: N/A - Opiate Usage Evaluate Pain Scale/Pains Meds: N/A - Relevant Labs Sodium 138 mmol/L (136-145) 04/16/22 05:40 Potassium 4.0 mmol/L (3.5-5.1) 04/16/22 05:40 Chloride 104 mmol/L (98-107) 04/16/22 05:40 Magnesium 1.9 mg/dL (1.8-2.4) 04/15/22 10:38 Electrolytes, C-Reactive P, ESR: Reviewed - DM Control DM Control: Glucose 91 mg/dL (74-106) 04/16/22 05:40 DM Control: N/A (no diabetes diagnosis in chart) - Cardiac Review Cardiac Review: Troponin I < 50 ng/L (<or=60) 04/15/22 17:00 BP, HR, EF%: Reviewed (chief complaint: chest pain..R/O ACS vs GI pain. pt reports SL nitro did relieve pain at home. On ramipril 10 mg BID, atenolol 25 mg BID + newly added amlodipine 2.5 mg daily) - Qtc Review QTc: Reviewed (QTc = 419 on 04/15/22) - IV to PO Switch IV Medications: N/A - Home Meds Home Med List reviewed: Reviewed Relevent Home Meds Not ordered & why?: home meds are ordered, amlodipine on home med list however pt reports not starting it due to fear of side effects, is agreeable to start here - Current meds Current Medication Order Review: Reviewed
--- NOTE | 2022-04-16 17:19 | W.PM.PROGNOT ---
Date of Service Date of service: 04/16/22 Time of Service: 17:19 Assessment and Plan Assessment and plan (1) Chest pain: Status: Acute Assessment and plan: Troponin neg x 3. Possibly GI in nature. H/O GERD but not on acid suppressant. If pain recurs will initiate famotadine or PPI. On aspirin, BB, statin. (2) Generalized anxiety disorder: Assessment and plan: Given 0.5mg po ativan in the ED. Cont home alprazolam 0.5 BID. Also with dx of OCD. She is working on [employer]. (3) Hyperlipidemia: Assessment and plan: Cont simvastatin. (4) Hypertension: Assessment and plan: Elevated in the ED. Recently prescribed amlodipine 2.5mg but she has been hesitant to start taking it because she was alone at home and some of the potential side effects worried her. She is willing to initiate amlodipine while in the hospital; 2.5mg QHS. She is taking atenolol and ramipril. HR in the 50's and occasionally 40's per her daily records. Does not have symptoms of orthostasis, dizziness, fatigue. Will discuss decreasing dose of Atenolol. (5) Supraventricular tachycardia: Assessment and plan: Previous history of SVT. Not seen on monitoring in ED. Telemetry. (6) Elevated bilirubin: Status: Acute Assessment and plan: Previous bilirubin levels in [facility] chart were normal; none were drawn recently. Monitor. Subjective Subjective Patient reports: tolerating a regular diet and afebrile; denies nausea, vomiting or shortness of breath Interval history since last seen: Some generalized mild chest pressure. No palpitatons. Not diaphoretic. No dizziness. Exam Narrative Exam Narrative: Sitting in chair writing in her mindfulness journal. Pleasant. Const General: cooperative and no acute distress Nutritional Appearance: thin Orientation: alert and oriented x3 Neck Neck: normal visual inspection and full ROM Resp Effort & Inspection: normal respiratory effort Auscultation: clear to auscultation bilaterally Cardio Rate: regular rate Rhythm: regular rhythm Heart Sounds: S1 normal and S2 normal GI Inspection: non-distended Palpation: nontender Skin General skin exam: no rashes or lesions noted Neuro General: no focal motor deficits Cranial Nerves: facial strength normal Speech: speech normal Gait: normal gait Extrem General: no pedal edema and no calf tenderness Psych Appearance: grossly normal Speech and Movement: speech and movement normal Affect: normal affect Objective Last Vital Signs Temp 36.5 C 04/16/22 15:35 Pulse 60 04/16/22 15:35 Resp 16 04/16/22 15:35 BP 159/72 H 04/16/22 15:35 Pulse Ox 99 04/16/22 15:35 Laboratory Results - last 24 hr 04/15/22 04/16/22 17:00 05:40 Sodium 138 Potassium 4.0 Chloride 104 Carbon Dioxide 27.7 Anion Gap 6.3 BUN 11 Creatinine 0.8 Est GFR (CKD-EPI 2020) 73.98 Glucose 91 Calcium 9.1 Total Bilirubin 1.1 H AST 20 ALT 18 Alkaline Phosphatase 44 L Troponin I < 50 Total Protein 5.6 L Albumin 3.3 L Time Spent with Patient Time Spent with Patient: 25-34 minutes Time was spent: preparing to see the patient(eg.review tests), ordering medications,tests, procedures, indepentently interpreting results and counseling the patient
[2022-04-16] MEDS: Simvastatin 20 MG TAB 10 MG PO (19:48)
[2022-04-16] MEDS: amLODIPine 2.5 MG TAB PO (21:17)
[2022-04-17 03:35] VITALS: BP 125/66; PULSE 68; RESP 16; TEMP 36.7; O2SAT 97
[2022-04-17 07:54] VITALS: BP 154/73; PULSE 52; RESP 18; TEMP 36.5; O2SAT 99
[2022-04-17] MEDS: Ramipril 5 MG CAP 10 MG PO (08:49)
[2022-04-17] MEDS: Atenolol 50 MG TAB 25 MG PO (08:49)
[2022-04-17] MEDS: Multivitamin w/Minerals TAB 1 TAB PO (08:49)
[2022-04-17] MEDS: Aspirin 81 MG CHEW PO (08:49)
[2022-04-17] MEDS: ALPRAZolam 0.5 MG TAB PO (08:49)
--- NOTE | 2022-04-17 09:53 | W.PM.DS.N ---
Date of service: 04/17/22 Time of Service: 10:00 DS: Diagnosis Discharge Diagnosis (1) Chest pain: Status: Acute (2) Generalized anxiety disorder: (3) Hyperlipidemia: (4) Hypertension: (5) Supraventricular tachycardia: (6) Elevated bilirubin: Status: Acute Discharge Plan Disposition Patient Disposition: Home Condition: Good Discharge Details Reason For Visit: Chest Pain Admit Date/Time: 04/15/22 14:44 Admit Provider: Abisai Ruggiero Attending Provider: Abisai Ruggiero Primary Care Provider: Yoon Hernandez [facility] Hospital Course: This is an 81 yo female with a PMH of HTN, HLDS, SVT, IBS, GERD, OCD, anxiety. She presented to the ED with c/o several weeks of intermittent chest pressure, then at appx 4:30 AM on day of admission, she woke with a sharp retrosternal chest pain along with feeling flushed. She took a nitroglycerin at appx 9:15 and the sharp pain resolved.? She described the pain as severe. No palpitations, shortness of breath, fever/chills, N/V/abd pain.? Of note, she endorsed a similar episode 6 months ago and was seen at [facility] in [place], [place].? The w/u was negative. In the ED her troponin was negative x 2.? No concerning EKG findings. CT chest/abd/pelvis was negative for concerning findings.? WBC and Hgb normal. Lytes normal.? Total bilirubin was mildly elevated at 1.4.? LFTs normal. Initial BP 179/65.? RA saturation 98%. Pulse 67. Telemetry monitoring showed bradycardia, mostly in the 50's to 60's. There was an occasional decrease to the upper 40's. She had no symptoms associated with any of the low heart rates. Her BP was predominately elevated. She did take amlodipine 2.5mg nightly as previously prescribed by Dr Hernandez, but not yet initiated. Her echocardiogram showed an EF of 55-60%. No wall motion abnormalities or significant valvular concerns. We discussed BP options and what regimen might work best with controlling BP but not decreasing her HR too significantly. The option of changing from atenolol to metoprolol was discussed but for now she will change her atentolol to a daily 25mg dosage instead of BID. She will continue with her ramipril as prescribed. Continue amlodipine 2.5mg nightly. I suspect the amlodipine may need to be titrated to 5mg. She has an appt with Dr He on 04/19 and then with her PCP, Dr Hernandez, on 05/04/22. ? Home Meds and New Rx's Prescriptions: Continued nitroglycerin [Nitrostat] 0.3 mg tablet, sublingual 0.3 mg sublingual Q5M PRN Rx Instructions: do not exceed 3 doses per episode ramipril 10 mg capsule 10 mg PO BID alprazolam 0.5 mg tablet 0.5 mg PO BID aspirin 81 mg tablet,chewable 81 mg PO DAILY Centrum Silver 0.4-300-250 mg-mcg-mcg tablet 1 tab PO DAILY simvastatin 10 mg tablet 10 mg PO DAILY fluticasone propionate [Flonase Allergy Relief] 50 mcg/actuation spray,suspension 1 spray intranasal DAILY PRN Rx Instructions: administer into each nostril Caltrate 600 plus D 600 mg (1,500 mg)-800 unit tablet,chewable 1 tab PO DAILY psyllium husk [Metamucil] 0.52 gram capsule 0.52 g PO .Q OTHER DAY PRN amlodipine 2.5 mg Tablet 2.5 mg PO DAILY Changed atenolol 25 mg tablet 25 mg PO DAILY Qty: 0 0RF Discharge Instructions Stand Alone Forms: Nursing Discharge Form Referrals: Yoon Hernandez [Primary Care Provider] - 04/19/22 3:20 pm Activity:: Activity as Tolerated Equipment/Supplies:: No Equipment Needed Diet:: Resume usual home diet Discharge Orders Discharge Orders: Discharge Order (Routine); Ordered 04/17/22 Ordered By: Abisai Ruggiero DS: Summary Time Spent with Patient providing and/or coordinating discharge services: Greater than 30 minutes Status at Discharge Functional status at discharge: independent ambulation Overall status at discharge: patient is back to baseline Mental Status: mental status grossly normal Speech and Movement: speech and movement normal Mood: congruent mood Affect: normal affect Exam Narrative Exam Narrative: Sitting in chair. She has been writing in her mindfulness journal. Pleasant. Const General: cooperative and no acute distress Nutritional Appearance: thin Orientation: alert and oriented x3 Neck Neck: normal visual inspection and full ROM Resp Effort & Inspection: normal respiratory effort Auscultation: clear to auscultation bilaterally Cardio Rate: regular rate Rhythm: regular rhythm Heart Sounds: S1 normal and S2 normal GI Inspection: non-distended Palpation: nontender Skin General skin exam: no rashes or lesions noted Neuro General: no focal motor deficits Cranial Nerves: facial strength normal Speech: speech normal Gait: normal gait Extrem General: no pedal edema and no calf tenderness Psych Appearance: grossly normal Mental Status: mental status grossly normal Speech and Movement: speech and movement normal Mood: congruent mood Affect: normal affect DS: Data Vitals/I&O Vitals and I&O: Vital Signs Temperature 36.5 C 04/17/22 07:54 Temperature Source Tympanic 04/17/22 07:54 Pulse 52 L 04/17/22 07:54 Pulse Rhythm Regular 04/17/22 08:45 Respiratory Rate 18 04/17/22 07:54 Respiratory Effort Non-Labored 04/17/22 08:45 Respiratory Depth Normal 04/17/22 08:45 Respiratory Pattern Normal 04/17/22 07:30 Blood Pressure 154/73 H 04/17/22 07:54 Pulse Oximetry 99 04/17/22 07:54 Oxygen Delivery Method Room Air 04/17/22 07:54 Oxygen Flow Rate 0 04/17/22 07:54 Pain Level 0 04/17/22 07:54 Comment 04/16/22 19:25 Intake & Output 04/16/22 04/16/22 04/17/22 11:59 23:59 11:59 Intake Total 1160 / 1160 500 / 500 Output Total 800 / 1600 800 / 1600 Balance -800 / -440 360 / -440 500 / 500 Weight 58 kg 57.2 kg Intake: Oral 1160 / 1160 500 / 500 Output: Urine 800 / 1600 800 / 1600 Other: Urine Color Yellow Yellow Urine Appearance Clear Clear Clear Urine Odor None None Comment pT stated that she voided early this morning. Voiding Methods Toilet Toilet Toilet PFSH All Active Problems Elevated bilirubin (Acute) Chest pain (Acute) History of excessive cerumen (Acute) Conductive hearing loss, external ear (Acute) Impacted cerumen, bilateral (Acute) Sensorineural hearing loss of both ears (Acute) Medical History Age-related osteoporosis without current pathological fracture Allergic dermatitis Anxiety Gastroesophageal reflux disease Generalized anxiety disorder Hemorrhoids Hyperlipidemia Hypertension IBS (irritable bowel syndrome) OCD (obsessive compulsive disorder) Preventative health care Supraventricular tachycardia Vitamin D deficiency Surgical History History of appendectomy History of excision of lesion Hx of fusion of cervical spine Family History Mother Colon cancer Social History Smoking/Tobacco Use Status: Former Tobacco Use tobacco type: cigarettes Quit Date: 03/25/1962 Smoking risk assessment performed?: Yes Alcohol Intake: current Alcohol Intake frequency: holidays/special occasions only Alcohol type: wine Drug use: Never Substance use type: does not use Do you feel safe at home: Yes Do you feel safe in your relationship?: Yes Time Spent with Patient Time Spent with Patient: 45-69 minutes Time was spent: preparing to see the patient(eg.review tests), indepentently interpreting results, counseling the patient and care coordination
--- NOTE | 2022-04-17 10:22 | PDOC.CMDIS ---
- If Service Date Differs Date of service: 04/17/22 Time of Service: 10:22 LACE Index Scoring Tool - Questions: Length of Stay (in days): 2 Acuity (Admit via E.D.?): Yes E.D. Visits: 1 - Answers: Total Score: 6 Risk of Readmission: Low Risk Care Management Discharge Reason for Hospitalization: chest pain Discharge Plan: Soledad will be discharged home with no new services. She will follow up with her community providers and plan of care and transport with family. Patient/Family Education Needs: review of disharge instructions, medications, activity, limitations, follow up plan, Ask Me Three
== END 2022-04-17 11:30 | disposition home or self-care (01) ==
LOC: ER 14:56 → MS 15:32
PROVIDERS: Admitting Provider Family Medicine; Emergency Provider Student in an Organized Health Care Education/Training Program; PCP Family Medicine; Visit Provider Family Medicine
DX: R07.89 Other chest pain (principal); F41.1 Generalized anxiety disorder; E78.5 Hyperlipidemia, unspecified; I47.1 Supraventricular tachycardia; I10 Essential (primary) hypertension; R17 Unspecified jaundice; Z20.822 Contact with and (suspected) exposure to COVID-19; K58.9 Irritable bowel syndrome, unspecified; K21.9 Gastro-esophageal reflux disease without esophagitis; F42.9 Obsessive-compulsive disorder, unspecified; E55.9 Vitamin D deficiency, unspecified; K64.8 Other hemorrhoids; M81.0 Age-related osteoporosis without current pathological fracture
CPT/HCPCS: 36415; 71275; 80053; 87635; 93005; 93306; 96374; 99285; 74174; 83735; 84484; 85025; 93010; 99223; 99232; 99239; G0378; J2060; J3490

== ENCOUNTER 2022-12-20 05:08 | Outpatient (CLI) | payer MEDICARE, SELFPAY ==
[2022-12-20 09:17] LABS: HCT 35.5 % (36.0-46.0); HGB 12.2 g/dL (11.2-15.7); MCH 32.4 pg (27.0-33.0); MCHC 34.4 % (32.0-36.0); MCV 94 fL (80-95); MPV 9.5 fL (8.0-11.0); Platelet Count 222 10^3/uL (130-400); RBC 3.77 10^6/uL (3.93-5.22); RDW 11.5 % (11.7-14.6); RDW-SD 39.6 fL; WBC 4.62 10^3/uL (4.4-10.8)
[2022-12-20 09:56] LABS: ALT 25 U/L (14-59); AST 22 U/L (15-37); Albumin 3.8 g/dL (3.4-5.0); Alkaline Phosphatase 56 U/L (46-116); Anion Gap 7.9 mmol/L (3-11); BUN 10 mg/dL (7-18); Bilirubin, Total 1.1 mg/dL (0.2-1.0); CO2 28.1 mmol/L (21.0-32.0); CREATININE 0.8 mg/dL (0.55-1.02); Calcium 9.4 mg/dL (8.5-10.1); Calculated LDL 69 mg/dL (<100); Chloride 101 mmol/L (98-107); Cholesterol 156 mg/dL (<200); Estimated GFR 73.52 (mL/min/1.73m2); Glucose 103 mg/dL (74-106); HDL Cholesterol 80 mg/dL (40-60); Sodium 137 mmol/L (136-145); Triglyceride 35 mg/dL (<150)
[2022-12-20 10:17] LABS: Vitamin D 25 Total 53.6 ng/mL (30-100)
== END 2022-12-20 05:09 | disposition home or self-care (01) ==
LOC: LBO 05:08
PROVIDERS: PCP Family Medicine; Visit Provider Family Medicine
DX: I10 Essential (primary) hypertension (principal); E78.5 Hyperlipidemia, unspecified; E55.9 Vitamin D deficiency, unspecified
CPT/HCPCS: 36415; 80053; 80061; 82306; 85027